=== PATIENT | male | born 1955 | race Caucasian/White ===

== ENCOUNTER 2020-11-16 10:57 | Outpatient (REF) | payer BC, SELFPAY | END 2020-11-16 10:58 | disposition home or self-care (01) | LOC: HO.BBR 10:57 | PROVIDERS: Visit Provider Internal Medicine | DX: D75.1 Secondary polycythemia (principal) | CPT/HCPCS: 36415; 85014; 85018 ==

== ENCOUNTER 2023-02-13 10:11 | Outpatient (AMB) | payer MEDICARE, SELFPAY ==
--- NOTE | 2023-02-13 10:15 | MHC.PC.OV ---
Vital Signs 02/13/23 10:17 Height 5 ft 6 in Weight 185 lb BMI 29.9 BP 128/74 Blood Pressure Location Lt brachial Position Sitting Pulse 53 Pulse Source Pulse Oximeter Pulse Oximetry (%) 96 Oxygen Delivery Method Room Air Intake Visit Reasons: New Patient/Stent in heart/HTN Intake Note: Patient is here as new patient, and needs a colonoscopy. Allergies No Known Allergies Allergy (Verified 02/13/23 10:21) Medication List - Last Reconciled 02/13/23 by Zackery Smith MD aspirin (Adult Aspirin Regimen) 81 mg PO DAILY atorvastatin 40 mg PO DAILY lisinopril 20 mg PO DAILY metoprolol succinate ER 12.5 mg PO BID sildenafil (Viagra) 50 mg PO DAILY PRN Tobacco use date assessed: 02/13/23 Fall risk assessment: 1 Fall in past year Last assessed Fall Risk: 02/13/23 Dental Screening Did you have a dental visit in the last 12 months?: Yes Did you have a dental problem in the last 6 months where you did not have access to dental care?: No Was dental information given to patient?: No HPI New Patient/Stent in heart/HTN HPI Details New patient Prior PCP:?Dr. Scot Hubbard Last office visit/CPE: Acute issue(s): Due for colonoscopy PMHx: CAD & Stent. Basal Cell CA, Low T. Recurrent Prostatitis. Recurrent PNA. SurgHx: Coronary Stent FHx: Dad: Prostate CA, CAD. Mom: Dementia SocHx: Smoked 40 years ago for a few years. EtOH 3 gl per week. No drugs. PFSH Medical History (Updated 02/13/23 @ 11:09 by Abiodun Rea) Chest pain Heart attack High cholesterol Surgical History (Updated 02/13/23 @ 10:31 by Светлана Sandra CMA) H/O angioplasty Stented coronary artery Family History (Updated 02/13/23 @ 10:33 by Светлана Sandra CMA) Father High blood pressure High cholesterol Cardiovascular disease Prostate cancer Brother Prostate cancer Social History Housing: House Patient Tobacco Use Status: Never used Tobacco e-Cigarette/Vaping Use: Never Used service: No Current occupational status: retired Cognitive needs: No Hearing needs: No Vision needs: No Questionnaire PHQ-9 Over the last 2 weeks, how often have you been bothered by any of the following problems? 1. Little interest or pleasure in doing things: not at all 2. Feeling down, depressed, or hopeless: not at all 3. Trouble falling or staying asleep, or sleeping too much: not at all 4. Feeling tired or having little energy: not at all 5. Poor appetite or overeating: not at all 6. Feeling bad about yourself - or that you are a failure or have let yourself or your family down: not at all 7. Trouble concentrating on things, such as reading the newspaper or watching television: not at all 8. Moving or speaking so slowly that other people could have noticed. Or the opposite - being so fidgety or restless that you have been moving around a lot more than usual: not at all 9. Thoughts that you would be better off or of hurting yourself in some way: not at all Total score: 0 Source: Developed by Drs. Daniel Mackay, Pam Berg, Liam Burgess and colleagues, with an educational dorian from [email or web address] Thrive Questionnaire I am a: Patient What is your living situation today?: I have a steady place to live Within the past 12 months, did the food you bought not last and you didn't have the money to get more?: Never true Within the past 12 months, did you worry whether your food would run out before you got money to buy more?: Never true Do you have trouble paying for medicines?: No Do you have trouble getting transportation to medical appointments?: No Do you have trouble paying your heating and electricity bill?: No Do you have trouble taking care of your child, family member or friend?: No Do you have trouble with day-to-day activities such as bathing, preparing meals, shopping, managing finances, etc.?: No Are you currently unemployed and looking for a job?: No Are you interested in more education?: No AUDIT C Alcohol Use Questionnaire (AUDIT-C) 1. How often do you have a drink containing alcohol?: 2-3 times a week 2. How many drinks containing alcohol do you have on a typical day when you are drinking?: 1 or 2 3. How often do you have six or more drinks on one occasion?: Never Total Score: 3 HELENE-7 AMB Questionnaire HELENE-7 Feeling nervous, anxious, or on edge: 0 = Not at all Not being able to stop or control worryin = Not at all Worrying too much about different things: 0 = Not at all Trouble relaxin = Not at all Being so restless that it is hard to sit still: 0 = Not at all Becoming easily annoyed or irritable: 0 = Not at all Feeling afraid as if something awful might happen: 0 = Not at all Total HELENE-7 score (0-4 normal; 5-9 mild; 10-14 moderate; 15-21 severe): 0 Source: Developed by Drs. Daniel Mackay, Pam Berg, Liam Burgess and colleagues, with an educational dorian from [email or web address]. Review of Systems Const Denies chills, Denies fatigue, Denies fever(s), Denies headache(s) and Denies weakness ENT Denies dizziness and Denies headache(s) Card Denies chest pain, Denies lightheadedness, Denies dyspnea and Denies other (Palpitations) Resp Denies cough, Denies dyspnea, Denies wheezing and Denies other ( shortness of breath) Musc Denies numbness and Denies tingling Neuro Denies dizziness, Denies headache(s), Denies numbness, Denies tingling, Denies paresthesias and Denies weakness Psych Denies anxiety and Denies depression Endo Denies fatigue Aller/Immun Denies wheezing Physical exam (Primary Care) Vital Signs: Last Vital Signs Pulse 53 02/13/23 10:17 BP 128/74 02/13/23 10:17 Pulse Ox 96 02/13/23 10:17 Oxygen Delivery Method Room Air 02/13/23 10:17 BMI result Body Mass Index 29.9 Tobacco/Smoking Status: Tobacco use Status Tobacco use date assessed 02/13/23 02/13/23 10:40 Patient Tobacco Use Status Never used Tobacco 02/13/23 10:40 e-Cigarette/Vaping Use Never Used 02/13/23 10:40 PHQ-9: PHQ-9 Score PHQ-9: Total score 0 02/13/23 10:55 Const General: no acute distress and well developed Nutritional Appearance: well nourished Orientation/consciousness: patient oriented x3 HENMT Head: Yes normocephalic and Yes atraumatic Eyes General: appearance normal, both eyes and all related structures Pupils: Equal, round and reactive pupils present EOM: EOMs intact bilaterally Resp Effort & Inspection: normal respiratory effort Auscultation: clear to auscultation bilaterally Cardio Rate: regular rate Rhythm: regular rhythm Heart sounds: S1 normal heart sound present, S2 normal heart sound present, no gallops, no murmurs and no rubs Neuro General: patient oriented x3 and gait normal Cranial nerves: Yes Equal, round and reactive pupils present Psych Affect: normal affect Assessment and Plan Assessment & Plan (1) Coronary artery disease: Code(s): I25.10 - Atherosclerotic heart disease of [place] coronary artery without angina pectoris Plan: History of coronary artery disease with stents and patient notes recent chest pain and visit to ED about a month ago. Has not seen his principal database developer yet and I recommended he do so. He declines an EKG today. He denies current chest pain. Follow-up with principal database developer as recommended Will request records (2) History of ME (myocardial infarction): Code(s): I25.2 - Old myocardial infarction Plan: S/p stent Continue atorvastatin, metoprolol and aspirin. Follow-up with Cardiology as recommended Requesting cardiology note (3) Recurrent pneumonia: Code(s): J18.9 - Pneumonia, unspecified organism Plan: Patient declines pneumonia shos (4) Hyperlipidemia: Code(s): E78.5 - Hyperlipidemia, unspecified Plan: LDL goal is less than 70. Patient declines lab work so I will request notes from his principal database developer where he says he gets these labs done. Continue atorvastatin (5) Screening for colon cancer: Code(s): Z12.11 - Encounter for screening for malignant neoplasm of colon Plan: Patient is requesting referral for colonoscopy Refer (6) Laboratory exam ordered as part of routine general medical examination: Code(s): Z00.00 - Encounter for general adult medical examination without abnormal findings Plan: Patient declines lab work today Orders: Orders Comprehensive [place]. Panel Fast Today Z00.00 - Encounter for general adult medical examination without abnormal findings Lipid Panel Today Z00.00 - Encounter for general adult medical examination without abnormal findings TSH reflex Free T4 Today Z00.00 - Encounter for general adult medical examination without abnormal findings Microalbumin, Random (w Creat) Today I10 - Essential (primary) hypertension Complete Blood Count Auto Diff Today Z00.00 - Encounter for general adult medical examination without abnormal findings UA and rflx microscopic Today Z00.00 - Encounter for general adult medical examination without abnormal findings Referrals Gastroenterology Referral Z12.11 - Encounter for screening for malignant neoplasm of colon Coding Level of Care Code New Pt Level 4 (22049) Diagnoses Coronary artery disease I25.10 History of ME (myocardial infarction) I25.2 Recurrent pneumonia J18.9 Hyperlipidemia E78.5 Screening for colon cancer Z12.11 Laboratory exam ordered as part of routine general medical examination Z00.00
[2023-02-13 10:17] VITALS: BP 128/74; PULSE 53; O2SAT 96; BMI 29.9
== END 2023-02-13 11:30 | disposition home or self-care (01) ==
PROVIDERS: Visit Provider Family Medicine
DX: I25.10 Atherosclerotic heart disease of native coronary artery without angina pectoris (principal); I25.2 Old myocardial infarction; J18.9 Pneumonia, unspecified organism; E78.5 Hyperlipidemia, unspecified; Z12.11 Encounter for screening for malignant neoplasm of colon; Z00.00 Encounter for general adult medical examination without abnormal findings
CPT/HCPCS: 99204

== ENCOUNTER 2024-04-14 08:26 | Outpatient (AMB) | payer MEDICARE, SELFPAY ==
--- NOTE | 2024-04-14 08:32 | A.OFFPC_ITS ---
Vital Signs 04/14/24 08:38 Height 5 ft 4.17 in Weight 188 lb 6 oz BMI 32.2 BP 112/70 Blood Pressure Location Lt brachial Position Sitting Respiration 14 Pulse 53 Pulse Source Pulse Oximeter Pulse Oximetry (%) 99 Oxygen Delivery Method Room Air Intake Visit Reasons: mawv Intake Note: Medical wellness visit Hot Bread Baker Required: No Allergies No Known Allergies Allergy (Verified 04/14/24 08:36) Tobacco use date assessed: 04/14/24 Fall risk assessment: No Falls in past year Last assessed Fall Risk: 04/14/24 Dental Screening Dental Screen Date: 04/14/24 Did you have a dental visit in the last 12 months?: Yes Did you have a dental problem in the last 6 months where you did not have access to dental care?: No Was dental information given to patient?: Patient has dentist HPI HPI Comments History of Present Illness Details This is a 68-year-old male with a past medical history of coronary artery disease, obesity and hyperlipidemia presenting for a medical wellness visit. 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 Seen annually. Urologist-Dr. Escobedo at [facility]. Dermatology-[facility]. Followed at [facility]. Optometry-Dr. Bolton. Declines pneumonia vaccine. He will get flu and covid-19 vaccines at the pharmacy. Tdap 01/08/2023. The patient had a colonoscopy 07/[address] Fang. He's had labwork done with cardiology and urology. Records requested. Patient says labs are not covered by insurance if they are part of the this visit. No opioid use tobacco use. Drinks 3 glasses of wine per week. It has been a stressful past 4 months. His (healthy, nonsmoker) was diagnosed with metastatic lung cancer. She is in treatment at [facility]. Patient completed HRA online-please refer to EMR. Patient denies concerns. ROS: Constitutional: No unexplained weight loss, fever, chills, fatigue or night sweats. Eyes: No vision changes, blurry vision, double vision, eye pain, eye redness, eye discharge. ENT: No hearing loss, sneezing, congestion, runny nose or sore throat. Respiratory: No shortness of breath, cough or sputum production. Cardiovascular: No chest pain, chest pressure or chest discomfort. No palpitat ions or pedal edema. Gastrointestinal: No anorexia, nausea, vomiting or diarrhea. No abdominal pain or blood in stool. Genitourinary: No dysuria, hematuria, urinary frequency. Neurologic: No headache, dizziness, syncope, unilateral weakness, ataxia, numbness or tingling in the extremities. Musculoskeletal: No muscle pain, back pain, joint pain or swelling. Hematologic/Lymphatics: No bleeding or bruising. No painful lymph nodes. Skin: No rash or itching. Endocrine: No cold or heat intolerance. No polyuria or polydipsia. Psychiatric: No depression. No SI/HI. Physical exam: Constitutional: Alert, in no distress. Eyes: Pupils are equal, round and reactive to light. Extraocular muscles intact. Ear, Nose and Throat: Canals clear. TMs normal. Normal nasal mucosa. No nasal discharge. No oral lesions. Neck: Supple, Full range of motion. No lymphadenopathy. No palpable thyroid masses. Respiratory: Clear to auscultation. Cardiovascular: S1 S2 regular. No murmurs. Gastrointestinal: Abdomen soft, non-tender, non-distended. Normal bowel sounds. No palpable masses. Neurologic: No focal neurological deficits. Extremities: Warm and well perfused. No clubbing, cyanosis or edema. 3+ peripheral pulses bilaterally. Psychiatric: Normal mood and affect [facility] Medical History (Updated 02/13/23 @ 11:09 by Abiodun Rea) Chest pain Heart attack High cholesterol Surgical History (Updated 02/13/23 @ 10:31 by Светлана Sandra [facility]) H/O angioplasty Stented coronary artery Family History (Updated 02/13/23 @ 10:33 by Светлана Sandra CMA) Father High blood pressure High cholesterol Cardiovascular disease Prostate cancer Brother Prostate cancer Social History Housing: House Patient Tobacco Use Status: Never used Tobacco e-Cigarette/Vaping Use: Never Used service: No Current occupational status: retired Cognitive needs: No Hearing needs: No Vision needs: No Questionnaire AUDIT C Alcohol Use Questionnaire (AUDIT-C) 1. How often do you have a drink containing alcohol?: Monthly or less 2. How many drinks containing alcohol do you have on a typical day when you are drinking?: 1 or 2 3. How often do you have six or more drinks on one occasion?: Never Total Score: 1 Physical exam (Primary Care) Vital Signs: Last Vital Signs Pulse 53 04/14/24 08:38 Resp 14 04/14/24 08:38 BP 112/70 04/14/24 08:38 Pulse Ox 99 04/14/24 08:38 Oxygen Delivery Method Room Air 04/14/24 08:38 BMI result Body Mass Index 32.2 Tobacco/Smoking Status: Tobacco use Status Tobacco use date assessed 04/14/24 04/14/24 08:36 Patient Tobacco Use Status Never used Tobacco 04/14/24 08:33 e-Cigarette/Vaping Use Never Used 04/14/24 08:33 Assessment and Plan Assessment & Plan (1) Medicare annual wellness visit, subsequent: Code(s): Z00.00 - Encounter for general adult medical examination without abnormal findings Plan: As part of this visit we reviewed the following issues, which are considered and essential part of preventative health in this age group: - Screening for colon cancer - Discussed Prostate cancer screening - Blood pressure screening - Cholesterol screening - Nutritional and exercise counseling - Counseling of injury prevention including fire prevention, smoke alarms and seat belt usage - Screening for depression - Prevention of and/or testing for infectious diseases - Education about skin cancer - Recommendations about immunizations - Recommendation of an eye exam - Screening for substance abuse Follow up in 1 year for MWV. Coding Level of Care Code Est Pt Level 4 (42695) Diagnoses Medicare annual wellness visit, subsequent Z00.00 Comment
[2024-04-14 08:38] VITALS: BP 112/70; PULSE 53; RESP 14; O2SAT 99; BMI 32.2
--- NOTE | 2024-04-15 08:43 | AM.OFFVISMDC ---
Intake Vital Signs 04/14/24 08:38 Height 5 ft 4.17 in Weight 188 lb 6 oz BMI 32.2 BP 112/70 Blood Pressure Location Lt brachial Position Sitting Respiration 14 Pulse 53 Pulse Source Pulse Oximeter Pulse Oximetry (%) 99 Oxygen Delivery Method Room Air Intake Visit Reasons: mawv Allergies No Known Allergies Allergy (Verified 04/14/24 08:36) HPI HPI Comments History of Present Illness Details This is a 68-year-old male with a past medical history of coronary artery disease, obesity and hyperlipidemia presenting for a medical wellness visit. 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 Seen annually. Urologist-Dr. Escobedo at [facility]. Dermatology-[facility]. Followed at [facility]. Optometry-Dr. Bolton. Declines pneumonia vaccine. He will get flu and covid-19 vaccines at the pharmacy. Tdap 01/08/2023. The patient had a colonoscopy 07/[address] Fang. He's had labwork done with cardiology and urology. Records requested. Patient says labs are not covered by insurance if they are part of the MWV. No opioid use or smoking. Drinks 3 glasses of wine per week. It has been a stressful past 4 months. His (healthy, nonsmoker) was diagnosed with metastatic lung cancer. She is in treatment at [facility]. Patient completed HRA online-please refer to record. ROS: Constitutional: No unexplained weight loss, fever, chills, fatigue or night sweats. Eyes: No vision changes, blurry vision, double vision, eye pain, eye redness, eye discharge. ENT: No hearing loss, sneezing, congestion, runny nose or sore throat. Respiratory: No shortness of breath, cough or sputum production. Cardiovascular: No chest pain, chest pressure or chest discomfort. No palpitations or pedal edema. Gastrointestinal: No anorexia, nausea, vomiting or diarrhea. No abdominal pain or blood in stool. Genitourinary: No dysuria, hematuria, urinary frequency. Neurologic: No headache, dizziness, syncope, unilateral weakness, ataxia, numbness or tingling in the extremities. Musculoskeletal: No muscle pain, back pain, joint pain or swelling. Hematologic/Lymphatics: No bleeding or bruising. No painful lymph nodes. Skin: No rash or itching. Endocrine: No cold or heat intolerance. No polyuria or polydipsia. Psychiatric: No depression. No SI/HI. Physical exam: Constitutional: Alert, in no distress. Eyes: Pupils are equal, round and reactive to light. Extraocular muscles intact. Ear, Nose and Throat: Canals clear. TMs normal. Normal nasal mucosa. No nasal discharge. No oral lesions. Neck: Supple, Full range of motion. No lymphadenopathy. No palpable thyroid masses. Respiratory: Clear to auscultation. Cardiovascular: S1 S2 regular. No murmurs. Gastrointestinal: Abdomen soft, non-tender, non-distended. Normal bowel sounds. No palpable masses. Neurologic: No focal neurological deficits. Extremities: Warm and well perfused. No clubbing, cyanosis or edema. 3+ peripheral pulses bilaterally. Psychiatric: Normal mood and affect [facility] Medical History (Updated 02/13/23 @ 11:09 by Abiodun Rea) Chest pain Heart attack High cholesterol Surgical History (Updated 02/13/23 @ 10:31 by Светлана Sandra [facility]) H/O angioplasty Stented coronary artery Family History (Updated 02/13/23 @ 10:33 by Светлана Sandra [facility]) Father High blood pressure High cholesterol Cardiovascular disease Prostate cancer Brother Prostate cancer Social History Housing: House Patient Tobacco Use Status: Never used Tobacco e-Cigarette/Vaping Use: Never Used service: No Current occupational status: retired Cognitive needs: No Hearing needs: No Vision needs: No Physical Exam Vital Signs: Last Vital Signs Pulse 53 04/14/24 08:38 Resp 14 04/14/24 08:38 BP 112/70 04/14/24 08:38 Pulse Ox 99 04/14/24 08:38 Oxygen Delivery Method Room Air 04/14/24 08:38 BMI result Body Mass Index 32.2 Quality Reporting (2020) Adult ([facility] 138/2/22/69) Body Mass Index: 32.2 Coding
== END 2024-04-14 09:22 | disposition home or self-care (01) ==
PROVIDERS: PCP Family Medicine; Visit Provider Physician Assistant Medical
DX: Z00.00 Encounter for general adult medical examination without abnormal findings (principal)
CPT/HCPCS: G0439

== ENCOUNTER 2025-04-20 08:15 | Outpatient (AMB) | payer MEDICARE, SELFPAY ==
--- NOTE | 2025-04-20 08:24 | AM.OFFVISMDC ---
Intake Vital Signs 04/20/25 09:13 Height 5 ft 4.17 in Weight 190 lb 2 oz BMI 32.5 BP 126/72 Blood Pressure Location Rt brachial Position Sitting Respiration 13 Pulse 56 Pulse Source Pulse Oximeter Temp 97.9 F Temp Source Temporal Artery Scan Pulse Oximetry (%) 96 Oxygen Delivery Method Room Air Intake Visit Reasons: MWV Intake Note: Edward presents in the office today for his medicare wellness visit. Allergies No Known Allergies Allergy (Verified 04/20/25 08:27) Medication List - Last Reconciled 04/20/25 by GUILLERMINA Sorenson aspirin (Adult Aspirin Regimen) 81 mg PO DAILY atorvastatin 40 mg PO DAILY lisinopril 20 mg PO DAILY metoprolol succinate ER 25 mg PO BID sildenafil (Viagra) 50 mg PO DAILY PRN Do you need a note to return to daycare/school/sports/work: No HPI HPI Comments History of Present Illness Details This is a 69-year-old male with a past medical history of coronary artery disease and hyperlipidemia presenting for a medical wellness visit. Group Work Program Director-Dr. Hidalgo in [place]. Seen annually. He has an upcoming appointment in June. Patient has bradycardia which he says is his baseline on the beta-elida, and the dose was reduced by his braider tender. He denies dizziness and fatigue. Urologist-Dr. Escobedo at [facility]. Dermatology-[facility]. Followed at [facility]. Optometry-Dr. Bolton. Declines pneumonia vaccine. He will receive the influenza vaccine and COVID-19 vaccine at the pharmacy. Tdap 01/08/2023. The patient had a colonoscopy 07/[address] Fang. He's had labwork done with cardiology and urology. [facility] Patient says labs are not covered by insurance if they are part of this visit. No opioid use or tobacco use. Drinks 3 glasses of wine per week. He continues to endorse some stress. His (healthy, nonsmoker) was diagnosed with metastatic lung cancer. She is in treatment at [facility]. He says that he has very good supports with family and friends. A1c is consistent with prediabetes. He is going to work on his diet and weight. ROS: Constitutional: No unexplained weight loss, fever, chills, fatigue or night sweats. Eyes: No vision changes, blurry vision, double vision, eye pain, eye redness, eye discharge. ENT: No hearing loss, sneezing, congestion, runny nose or sore throat. Respiratory: No shortness of breath, cough or sputum production. Cardiovascular: No chest pain, chest pressure or chest discomfort. No palpitations or pedal edema. Gastrointestinal: No anorexia, nausea, vomiting or diarrhea. No abdominal pain or blood in stool. Genitourinary: No dysuria, hematuria, urinary frequency. Neurologic: No headache, dizziness, syncope, unilateral weakness, ataxia, numbness or tingling in the extremities. Musculoskeletal: No muscle pain, back pain, joint pain or swelling. Hematologic/Lymphatics: No bleeding or bruising. No painful lymph nodes. Skin: No rash or itching. Endocrine: No cold or heat intolerance. No polyuria or polydipsia. Psychiatric: No depression. No SI/HI. Physical exam: Constitutional: Alert, in no distress. Eyes: Pupils are equal, round and reactive to light. Extraocular muscles intact. Ear, Nose and Throat: Canals clear. TMs normal. Normal nasal mucosa. No nasal discharge. No oral lesions. Neck: Supple, Full range of motion. No lymphadenopathy. No palpable thyroid masses. Respiratory: Clear to auscultation. Cardiovascular: S1 S2 regular. No murmurs. Gastrointestinal: Abdomen soft, non-tender, non-distended. Normal bowel sounds. No palpable masses. Neurologic: No focal neurological deficits. Extremities: Warm and well perfused. No clubbing, cyanosis or edema. Intact peripheral pulses. Psychiatric: Normal mood and affect [facility] Medical History (Updated 04/20/25 @ 09:02 by GUILLERMINA Sorenson) Prediabetes Medicare annual wellness visit, subsequent Chest pain Heart attack High cholesterol Surgical History (Updated 02/13/23 @ 10:31 by Светлана Sandra CMA) H/O angioplasty Stented coronary artery Family History (Updated 04/20/25 @ 08:29 by Brigida Danielson MA) Father High blood pressure High cholesterol Cardiovascular disease Prostate cancer Brother Prostate cancer Social History (Updated 04/20/25 @ 08:30 by Brigida Danielson MA) Housing: House Alcohol intake: current Patient Tobacco Use Status: Never used Tobacco e-Cigarette/Vaping Use: Never Used Second Hand Smoke Exposure: No service: No Current occupational status: retired Cognitive needs: No Hearing needs: No Vision needs: No Questionnaire Medicare Wellness Checkup What [age] 65-70 What gender do you identify with?: male During the past 4 weeks, how much have you been bothered by emotional problems such as feeling anxious, depressed, irritable, sad or downhearted, and blue?: quite a bit During the past 4 weeks, has your physical & emotional health limited your social activities with family, friends, neighbors, or groups?: slightly During the past 4 weeks, how much bodily pain have you generally had?: moderate pain During the past 4 weeks, was someone available to help you if you needed & wanted help?: yes, quite a bit During the past 4 weeks, what was the hardest physical activity you could do for at least 2 minutes?: moderate (Walking) Can you get to places out of walking distance without help? (For eg., can you travel alone on buses, taxis or drive your car?): Yes Can you go shopping for groceries or clothes without someone's help?: Yes Can you prepare your own meals?: Yes Can you do your housework without help?: Yes Because of any health problems, do you need the help of another person with your personal care needs such as eating, bathing, dressing or getting around the house?: No Can you handle your own money without help?: Yes During the past 4 weeks, how would you rate your health in general?: good During the past 4 weeks how have things been going for you?: good & bad parts about equal Are you having difficulties driving your car?: no Do you always fasten your seat belt when you are in a car?: yes, usually During past 4 weeks, have you been bothered by the following: never: Sexual problems?, Trouble eating well?, Teeth or denture problems? and Problems using the telephone?, seldom: Falling or dizzy when standing up and sometimes: Tiredness or fatigue? Have you fallen 2 or more times in the past year?: No Are you afraid of falling?: No Are you a smoker?: no During the past 4 weeks, how many drinks of wine, beer, or other alcoholic beverages did you have?: 2-5 drinks per week Do you exercise for about 20 minutes 3 or more times a week?: yes, all the time Have you been given information to help with the following?: yes: Keeping track of your medications? and no: Hazards in your house that might hurt you? How often do you have trouble taking medicines the way you have been told to take them?: I always take medicine as prescribed How confident are you that you can control & manage most of your health problems?: very confident What is your race?: White Mini Mental State Exam (MMSE) Orientation What is the (year) (season) (date) (day) (month)?: year, season, date, day and month Where are we (state) (county) (town or city) (hospital) (floor)?: state, county, town or city, hospital/clinic and floor Registration Name of 3 unrelated objects clearly and slowly, then ask patient to repeat all 3 of them. (1st repeat determines score. Make sure they can repeat all three): object 1, object 2 and object 3 Attention & Calculation (CHOOSE ONE) Ask pt to begin with 100 & count backward by 7. Stop after 5 repeats. If pt cannot ask them to spell the word WORLD backward.: 93, 86, 79, 72 and 65 Spell WORLD backwards (DLROW): 5 letters Recall Ask patient to repeat the 3 items from question #3.: object 1, object 2 and object 3 Language Show patient a wristwatch & ask what it is. Repeat for pencil.: watch and pencil Ask the patient to repeat the phrase 'No ifs, ands, or buts' after you.: correct Ask the patient to 'take a piece of paper with their right hand' 'fold paper in half' 'place paper on floor': take paper in right hand, fold paper in half and place paper on floor Print the sentence 'CLOSE YOUR EYES' on a piece. If patient actually closes eyes then score.: followed written direction Give patient a blank piece of paper & ask to write a sentence. Score if it contains a noun & verb.: sentence contains subject and verb Score Score: 34 Activity of Daily Living Bathing - sponge bath, tub bath or shower: receives no assistance (gets in/out by self, if usual bathing means Dressing - getting clothes from closets & drawers, including inner/outer garments & fasteners.: gets clothes & gets completely dressed without help Toileting - going to the 'toilet room' for urine/bowel elimination & cleaning self/arranging clothes: goes to toilet room, cleans self, arranges clothes without help Transfer: moves in & out of bed and chair without help (may use support object) Continence: controls urination/bowel movements completely by self Feeding: feeds self without help Total Score: 0 Information obtained from: patient Using telephone: independent Traveling: independent Shopping: independent Preparing meals: independent Housework: independent Taking medicine: independent Managing money: independent PHQ-9 Over the last 2 weeks, how often have you been bothered by any of the following problems? 1. Little interest or pleasure in doing things: not at all 2. Feeling down, depressed, or hopeless: not at all 3. Trouble falling or staying asleep, or sleeping too much: several days 4. Feeling tired or having little energy: not at all 5. Poor appetite or overeating: not at all 6. Feeling bad about yourself - or that you are a failure or have let yourself or your family down: not at all 7. Trouble concentrating on things, such as reading the newspaper or watching television: not at all 8. Moving or speaking so slowly that other people could have noticed. Or the opposite - being so fidgety or restless that you have been moving around a lot more than usual: not at all 9. Thoughts that you would be better off or of hurting yourself in some way: not at all Total score: 1 Depression Screening Interpretation: Negative Depression Screening Done: Yes 46737 - PHQ-9 Billing: Patient declined-do not bill Source: Developed by Drs. Daniel Mackay, Pam Berg, Liam Burgess and colleagues, with an educational dorian from [employer]. Physical Exam Vital Signs: Last Vital Signs Temp 97.9 F 04/20/25 09:13 Pulse 56 04/20/25 09:13 Resp 13 04/20/25 09:13 BP 126/72 04/20/25 09:13 Pulse Ox 96 04/20/25 09:13 Oxygen Delivery Method Room Air 04/20/25 09:13 BMI result Body Mass Index 32.5 Office Procedures EKG Details: EKG shows sinus bradycardia with sinus arrhythmia and first-degree AV block, possible inferior infarct age undetermined, ventricular rate 48 beats per minute. Reviewed by Dr. Fields. [id number], Complete Results AMB Hemoglobin A1c AMB Hemoglobin A1c 5.9 % Last Edit by Brigida Danielson MA on 04/20/25 08:56 Results Reviewed Results Reviewed: Laboratory Last Values Hgb A1c (Clinic) 5.9 % (4.0-6.0) 04/20/25 08:43 Assessment & Plan Assessment & Plan (1) Medicare annual wellness visit, subsequent: Code(s): Z00.00 - Encounter for general adult medical examination without abnormal findings Plan As part of this visit we reviewed the following issues, which are considered and essential part of preventative health in this age group: - Screening for colon cancer - Discussed Prostate cancer screening - PSA done by Urology per patient - Blood pressure screening - Cholesterol screening - Nutritional and exercise counseling - Counseling of injury prevention including fire prevention, smoke alarms and seat belt usage - Screening for depression - Education about skin cancer - Recommendations about immunizations - Recommendation of an eye exam - Screening for substance abuse Requested lab results, last EKG and cardiology note for comparison. Patient denies anginal symptoms. Recommended low carbohydrate, low-sodium diet and avoidance of alcohol for prediabetes. Reviewed signs and symptoms of diabetes and complications of hyperglycemia and chronic diabetes. Follow up in 1 year for MWV. Orders: Orders AMB Hemoglobin A1c Today Z13.9 - Encounter for screening, unspecified AMB EKG-In Office Today Z00.00 - Encounter for general adult medical examination without abnormal findings Quality Reporting (2019) Fall Risk Screening ([facility] 139) Last assessed Fall Risk: 04/20/25 Fall risk assessment: No Falls in past year Depression/Bipolar (159/160/161/177) PHQ-9: Total score: 1 Coding Level of Care Code Medicare Subsequent (G0439) Diagnoses Medicare annual wellness visit, subsequent Z00.00 CPT Codes EKG - CPT: 88162-[id number], Complete ([id number])
--- OUTSIDE RECORDS SUMMARY | 2025-04-20 09:08 | XMS_ITS | Clinical Summary ---
Author Organization [facility] Address [address] [place] [phone] Phone Care Team Providers Care Signaling Project Engineer Name Role Phone Florentin Sandoval MD Unavailable Pcp, Unknown Primary Care Provider Unavailabl e Allergies No known active allergies Medications sildenafiL (VIAGRA) 50 mg tablet Take 1 tablet by mouth daily as needed. Active multivitamins Chew Orally Active aspirin (ASPIR-81) 81 MG EC tabletIndication s:Medication refill Take 1 tablet (81 mg total) by mouth daily. 90 tablet 3 06/20/2021 Active metoprolol tartrate (LOPRESSOR) 25 MG tabletIndication s:Medication refill take one tablet by mouth twice a day 180 tablet 3 06/02/2024 Active atorvastatin (LIPITOR) 40 MG tabletIndication s:Medication refill TAKE ONE TABLET BY MOUTH EVERY DAY 90 tablet 3 07/07/2024 Active lisinopril (PRINIVIL,ZESTRI L) 20 MG tabletIndication s:Medication refill TAKE ONE TABLET BY MOUTH EVERY DAY 90 tablet 3 12/01/2024 Active Active Problems Problem Noted Date Diagnosed Date Coronary artery disease 04/11/2018 Assessment & Plan (04/11/2018 3:35 PM EDT): He has a history of stenting of his LAD in 2008 was done very well since then. He should remain on aspirin lifelong we will continue to optimize his other cardiac risk factors. Essential hypertension 04/11/2018 Assessment & Plan (04/11/2018 3:36 PM EDT): His blood pressures a bit elevated today. I rechecked it and it was 150/95. He wants to first try checking his blood pressures at home. I told him if it is consistently over 140 then I would add lisinopril 10 mg daily. Hyperlipidemia 04/11/2018 Assessment & Plan (04/11/2018 3:36 PM EDT): His lipids have been well controlled on the atorvastatin. I will continue this. Encounters Date Type Department Care Team Description 04/15/2025 Orders Only [facility] [address] [place] [address] Rosa Isela Gonzalez MD from Last 3 Months Family History Medical History Relation Comments CABG Father Relation Status Comments Father Social History Tobacco Use Types Packs/Day Years Used Date Smoking Tobacco: Former Smokeless Tobacco: Never Tobacco Cessation:Counseling Given: Not Answered Education Answer Date Recorded Are you interested in more education? Not on loraine e 12/01/2022 Are you concerned about learning? Not on file 12/01/2022 No 12/01/2022 No 12/01/2022 Digital Access Answer Date Recorded No 12/30/2022 No 12/30/2022 Reliable internet access at home? Not on file 12/30/2022 Device with a working camera? Not on file Sex and Gender Information Value Date Recorded Sex Assigned at Not on file Legal Sex Male 9:54 PM EDT Gender Identity Not on file Sexual Orientation Not on file Last Filed Vital Signs Vital Sign Reading Time Taken Comments Blood Pressure 110/70 06/30/2024 9:53 AM EST Pulse 48 06/30/2024 9:53 AM EST Temperature - - Respiratory Rate - - Oxygen Saturation 99% 06/30/2024 9:53 AM EST Inhaled Oxygen Concentration - - Weight 86.2 kg (190 lb) 06/30/2024 9:53 AM EST Height 167.6 cm (5' 5.98 ) 06/30/2024 9:53 AM ES T Body Mass Index 30.68 06/30/2024 9:53 AM EST Plan of Treatment Upcoming Encounters Date Type Department Care Team (Late st Contact Info) Description 06/29/2025 8:20 AM EST Office Visit [facility] [address], [address] [place] [address] Florentin Sandoval MD [address], [address] [place] [address] [email or web address] Health Maintenance Due Date Last Done Comments Adult Td,Tdap Booster 1956 CREATININE LEVEL 1956 POTASSIUM LEVEL 1956 DEPRESSION SCREENING 1968 SMOKING Hx and SMOKELESS TOBACCO SCREENING 1969 HEPATITIS C SCREENING 1974 SCREENING FOR DIABETES 1991 COLOGUARD 2001 COLONOSCOPY 2001 COLORECTAL CANCER SCREENING 2001 FIT TEST 2001 FOBT 2001 SIGMOIDOSCOPY 2001 VIRTUAL COLONOSCOPY 2001 PNEUMOCOCCAL VACCINES (50+ years) (1 of 1 - PCV) 2006 ZOSTER VACCINES (1 of 2) 2006 RSV VACCINE (1 - Risk 60-74 years 1-dose series) 2016 ABDOMINAL AORTIC ANEURYSM (AAA) SCREENING 2021 BLOOD PRESSURE 12/28/2024 06/30/2024 INFLUENZA VACCINE (#1) 2025 0, 06/21/2019 COVID-19 VACCINE (2 - 2024-2 6 season) 2025 10/23/2020 HEPATITIS A VACCINES Aged Out No long er eligible based on patient's age to complete this topic HIB VACCINES Aged Out No longer eligi ble based on patient's age to complete this topic MENINGOCOCCAL VACCINES (ACWY) Aged Out No longer eligible based on patient's age to complete this topic MENINGOCOCCAL VACCINES (B) Aged Out N o longer eligible based on patient's age to complete this topic Medical Devices Not on file Insurance [place] SUPPLEMENT MEDICARE PART A & B [facility] MEDEX SUPPLEMENT MEDICARE PART A & B [employer] SUPPLEMENT MEDICARE PART A & B [place] [employer] SUPPLEMENT MEDICARE PART A & B [employer] SUPPLEMENT MEDICARE PART A & B [employer] SUPPLEMENT MEDICARE PART A & B [employer] SUPPLE[employer] MEDICARE PART A & B [employer] SUPPLEMENT MEDICARE PART A & B [facility] MEDEX SUPPLEMENT MEDICARE PART A & B Care Teams Signaling Project Engineer Relationship Specialty Start Date End Date Pcp, Unknown PCP - General 04/12/22 Florentin Sandoval MD [address] [place] [address], [address] [place] [address] [email or web address] Historical LMR Provider 05/24/17 Additional Source Comments The information contained in this document represents components of the legal health record. It is not the complete legal health record.[facility]
--- OUTSIDE RECORDS SUMMARY | 2025-04-20 09:08 | XMS_ITS | Encounter Summary ---
Author Organization [facility] Address [address] [place] [address] Phone Care Team Providers Care Radio Dispatcher Name Role Phone Florentin Sandoval MD Unavailable [phone] Pcp, Unknown Primary Care Provider Unavailabl e Encounter Details Date Type Department Care Team (Late st Contact Info) Description 04/15/2025 Orders Only [facility] [address] [place] [address] Rosa Isela Gonzalez MD [address] [place] [address] [email or web address] Social History Tobacco Use Types Packs/Day Years Used Date Smoking Tobacco: Former Smokeless Tobacco: Never Education Answer Date Recorded Are you interested [...] on file Sexual Orientation Not on file documented as of this encounter Plan of Treatment Upcoming Encounters Date Type Department Care Team (Late st Contact Info) Description 06/29/2025 8:20 AM EST Office Visit [facility] [address] [place] [address] [address] Floor, [address] [place], [place] [id number] Florentin Sandoval MD [address] [place] [id number] [email or web address] documented as of this encounter Visit Diagnoses Not on filedocumented in this encounter Care Teams Radio Dispatcher Relationship Specialty Start Date End Date Pcp, Unknown PCP - General 04/12/22 Florentin Sandoval MD [address] [place] [phone] [email or web address] Historical LMR Provider 05/24/17 documented as of this encounter Additional Source Comments The information contained in this document represents components of the legal health record. It is not the complete legal health record.[facility]
[2025-04-20 09:13] VITALS: BP 126/72; PULSE 56; RESP 13; TEMP 36.6; O2SAT 96; BMI 32.5
== END 2025-04-20 09:28 | disposition home or self-care (01) ==
LOC: HO.HMCFM 08:15
PROVIDERS: PCP Physician Assistant Medical; Visit Provider Physician Assistant Medical
DX: Z00.00 Encounter for general adult medical examination without abnormal findings (principal); R00.1 Bradycardia, unspecified; Z13.9 Encounter for screening, unspecified

== ENCOUNTER → 2025-04-20 08:15 | Outpatient (BNVA) | payer MEDICARE, SELFPAY | PROVIDERS: PCP Family Medicine; Visit Provider Physician Assistant Medical | DX: Z00.00 Encounter for general adult medical examination without abnormal findings (principal); R73.03 Prediabetes; I25.10 Atherosclerotic heart disease of native coronary artery without angina pectoris; E78.5 Hyperlipidemia, unspecified; Z13.31 Encounter for screening for depression | CPT/HCPCS: 83036; 93005 ==